=== PATIENT | female | born 1990 | race Hispanic/Latino ===

== ENCOUNTER 2019-02-24 22:41 | Observation (INO) | payer OTHER, MEDICAID ==
[~2019-02-24] VITALS: Ht 160 cm; Wt 102.1 kg
[2019-02-24 22:59] VITALS: BP 153/90
[2019-02-24] MEDS ORDERED: LACTATED RINGERS 1000ML IV PRN (23:00)
[2019-02-24 23:16] LABS: APPEARANCE,URINE Clear (CLEAR); BILIRUBIN,URINE Negative (NEGATIVE); COLOR,URINE Yellow (YELLOW); GLUCOSE, URINE (UA) Negative (NEGATIVE); KETONES,URINE Negative (NEGATIVE); LEUKOCYTE ESTERASE ,URINE Small (NEGATIVE); NITRATE,URINE Negative (NEGATIVE); OCCULT BLOOD,URINE Negative (NEGATIVE); PROTEIN,URINE Negative (NEGATIVE)
[2019-02-24 23:30] LABS: BACTERIA,URINE Rare /HPF (None Seen); RBC,URINE None Seen /HPF (0-1); WBC,URINE 0-1 /HPF (0-1)
[2019-02-24 23:31] LABS: MUCUS,URINE Few LPF (None Seen); SQUAMOUS EPITHELIAL CELL,UR Few /HPF (0-2)
[2019-02-28] MEDS ORDERED: PREN-196 PO (00:02)
== END 2019-02-25 00:20 | disposition home or self-care (01) ==
LOC: EDH 22:41 → LDH 22:55
DX: O36.8130 Decreased fetal movements, third trimester, not applicable or unspecified (principal); O26.893 Other specified pregnancy related conditions, third trimester; R03.0 Elevated blood-pressure reading, without diagnosis of hypertension; Z3A.38 38 weeks gestation of pregnancy
CPT/HCPCS: 59025; 81001; 99284; G0378